=== PATIENT | male | born 1980 | race Hispanic/Latino ===

== ENCOUNTER 2024-12-16 22:28 | Inpatient (IN) | payer BC ==
[~2024-12-16] VITALS: Ht 188 cm; Wt 149.7 kg
[2024-12-16] MEDS: FAMOTIDINE 20 MG/2 ML VIAL IV STA (23:12)
[2024-12-16] MEDS: HYDRALAZINE HCL 20 MG/ML VIAL IV ONE ×2 (23:12→23:32)
[2024-12-16] MEDS ORDERED: IOPAMIDOL 370 MG/ML 100 ML INFUS..BTL INJ ONE (23:33)
[2024-12-16] MEDS ORDERED: SODIUM CHLORIDE 0.9% 100 ML ONE (23:33)
[2024-12-17] VITALS (10 sets, daily range): BP systolic 134–161; BP diastolic 61–95; PULSE 68–83; RESP 16–20; TEMP 97.5–99; O2SAT 96–100
[2024-12-17] MEDS: AMLODIPINE BESYLATE 10 MG TAB PO ONE (00:13)
[2024-12-17] MEDS: FAMOTIDINE 20 MG/2 ML VIAL IV SCH (02:30)
[2024-12-17] MEDS: D5.45%NS/KCL 20MEQ 1,000 ML IV ONE (03:45)
[2024-12-17] MEDS: LISINOPRIL 20 MG TAB PO SCH (09:26)
[2024-12-17] MEDS: Morphine 2mg Syringe 2 MG/ML SYR IV PRN (11:28)
[2024-12-17 11:31] LABS: BASOPHILS % 0.6 % (0.0-1.0); EOSINOPHILS % 1.3 % (0.0-6.0); LYMPHOCYTES % 20.9 % (18.0-39.1); MONOCYTES % 9.2 % (4.4-11.3); NEUTROPHILS % 67.4 % (38.7-80.0); RED CELL DISTRIBUTION WIDTH 13.4 % (11.7-14.4)
[2024-12-17] MEDS: ONDANSETRON HCL INJ 2MG/ML 2ML 2 MG/ML VIAL IV PRN (11:40)
[2024-12-17 11:58] LABS: EST GLOMERULAR FILTRATION RATE 114.0 ML/MIN (>=60)
[2024-12-17] MEDS: SODIUM CHLORIDE 0.9% 1000ML 1,000 ML IV SCH (21:03)
[2024-12-17] MEDS: ACETAMINOPHEN 325 MG TAB PO PRN (21:12)
[2024-12-18 08:00] VITALS: BP 153/101; PULSE 85; RESP 20; TEMP 99.2; O2SAT 97
[2024-12-18 08:18] LABS: BASOPHILS % 0.2 % (0.0-1.0); EOSINOPHILS % 0.3 % (0.0-6.0); LYMPHOCYTES % 9.6 % (18.0-39.1); MONOCYTES % 10.3 % (4.4-11.3); NEUTROPHILS % 79.2 % (38.7-80.0); RED CELL DISTRIBUTION WIDTH 12.9 % (11.7-14.4)
[2024-12-18] MEDS: HYDRALAZINE HCL 20 MG/ML VIAL IV PRN (08:56)
[2024-12-18 08:58] LABS: CHOL/HDL RATIO 3.8 (3.9-4.7); EST GLOMERULAR FILTRATION RATE 112.0 ML/MIN (>=60); LDL CHOLESTEROL 95.0 MG/DL (60-130)
[2024-12-18 09:00] VITALS: BP 153/101; PULSE 85; RESP 20; TEMP 99.2; O2SAT 97
[2024-12-18 12:00] VITALS: BP 126/80; PULSE 86; RESP 20; TEMP 99.2; O2SAT 98
[2024-12-18] MEDS ORDERED: PROPOFOL IV EMULSION 10 MG/ML 20 ML VIAL ONE ×2 (14:43→15:39)
[2024-12-18] MEDS ORDERED: SUCCINYLCHOLINE CHLORIDE 20 MG/ML 10ML VIAL ONE (14:44)
[2024-12-18] MEDS ORDERED: FENTANYL CITRATE/PF 100MCG/2 ML INJ ONE ×3 (14:45→16:52)
[2024-12-18] MEDS ORDERED: MIDAZOLAM HCL 2 MG/2 ML VIAL ONE (14:45)
[2024-12-18] MEDS ORDERED: GLYCOPYRROLATE INJ 0.2 MG/ML VIAL ONE ×2 (14:45→16:44)
[2024-12-18] MEDS ORDERED: ROCURONIUM BROMIDE 1 ML IV ONE ×2 (14:48→16:13)
[2024-12-18] MEDS ORDERED: SUGAMMADEX SODIUM 200 MG/2 ML VIAL IV ONE (14:48)
[2024-12-18] MEDS ORDERED: ACETAMINOPHEN 1000 MG/100 ML 100 ML IV ONE (14:49)
[2024-12-18] MEDS ORDERED: SODIUM CHLORIDE 0.9% 100 ML ONE (15:13)
[2024-12-18] MEDS ORDERED: CEFTRIAXONE 1 GM VIAL ONE (16:13)
[2024-12-18] MEDS ORDERED: KETOROLAC TROMETHAMINE 30 MG/ML VIAL ONE (16:44)
[2024-12-18] MEDS ORDERED: ONDANSETRON HCL INJ 2MG/ML 2ML 2 MG/ML VIAL ONE (16:44)
[2024-12-18] MEDS ORDERED: HYDROMORPHONE 1MG/1ML INJ IV PRN (16:45)
[2024-12-18] MEDS ORDERED: ACETAMINOPHEN 1000 MG/100 ML IV PRN (16:45)
[2024-12-18 20:00] VITALS: BP 121/67; PULSE 103; RESP 20; TEMP 97.8; O2SAT 95
[2024-12-19] VITALS (8 sets, daily range): BP systolic 103–123; BP diastolic 53–79; PULSE 63–101; RESP 17–20; TEMP 97.6–98.6; O2SAT 94–97
[2024-12-19 06:43] LABS: BASOPHILS % 0.1 % (0.0-1.0); EOSINOPHILS % 0.0 % (0.0-6.0); LYMPHOCYTES % 8.3 % (18.0-39.1); MONOCYTES % 8.2 % (4.4-11.3); NEUTROPHILS % 83.1 % (38.7-80.0); RED CELL DISTRIBUTION WIDTH 13.2 % (11.7-14.4)
[2024-12-19 07:26] LABS: EST GLOMERULAR FILTRATION RATE 106.0 ML/MIN (>=60)
[2024-12-19] MEDS: HYDROCODONE/APAP 7.5MG-325MG 1 EA TAB PO PRN (17:32)
[2024-12-20 00:18] VITALS: BP 131/71; PULSE 70; RESP 18; TEMP 97.6; O2SAT 95
[2024-12-20 04:21] VITALS: BP 121/78; PULSE 67; RESP 18; TEMP 97.4; O2SAT 96
[2024-12-20 07:01] LABS: BASOPHILS % 0.4 % (0.0-1.0); EOSINOPHILS % 0.8 % (0.0-6.0); LYMPHOCYTES % 22.2 % (18.0-39.1); MONOCYTES % 12.9 % (4.4-11.3); NEUTROPHILS % 63.0 % (38.7-80.0); RED CELL DISTRIBUTION WIDTH 13.3 % (11.7-14.4)
[2024-12-20 07:10] VITALS: BP 138/98; PULSE 79; RESP 20; TEMP 99; O2SAT 97
[2024-12-20 07:22] LABS: EST GLOMERULAR FILTRATION RATE 113.0 ML/MIN (>=60)
[2024-12-20 08:00] VITALS: BP 138/98; PULSE 79; RESP 20; TEMP 99; O2SAT 97
[2024-12-20 12:00] VITALS: BP 130/74; PULSE 72; RESP 20; TEMP 98.5; O2SAT 97
[2024-12-20 16:00] VITALS: BP 124/84; PULSE 69; RESP 20; TEMP 98.2; O2SAT 99
== END 2024-12-20 18:54 | disposition home or self-care (01) | DRG 418 ==
LOC: FSED 22:37 → ERHOLD 12-17 02:16 → MED/SURG3 12-17 03:15
PROVIDERS: ADMIT Internal Medicine; ATTEND Internal Medicine
PROC: 0FT44ZZ Resection of Gallbladder, Percutaneous Endoscopic Approach (ICD-10-PCS; principal; 2024-12-20)
DX: K80.00 Calculus of gallbladder with acute cholecystitis without obstruction (principal); Z68.41 Body mass index [BMI] 40.0-44.9, adult; K82.A1 Gangrene of gallbladder in cholecystitis; I16.0 Hypertensive urgency; I10 Essential (primary) hypertension; K76.0 Fatty (change of) liver, not elsewhere classified; E66.01 Morbid (severe) obesity due to excess calories; R07.9 Chest pain, unspecified; Z98.84 Bariatric surgery status; Z79.85 Long-term (current) use of injectable non-insulin antidiabetic drugs
CPT/HCPCS: 36415; 71046; 71275; 74174; 76705; 80053; 80061; 80307; 81003; 82550; 83735; 84484; 85025; 85379; 88304; 93005; 96374; 96375; 96376; 99284; C1766; J0330; J0360; J0696; J1308; J1885; J2250; J2270; J2405; J2470; J2543; J7030; J7050; Q9967